=== PATIENT | female | born 1985 | race Caucasian/White ===

== ENCOUNTER 2016-12-13 05:01 | Day surgery (SDC) | payer OTHER ==
[2016-12-07 09:45] VITALS: BMI 29.7
--- NOTE | 2016-12-13 09:59 | HP ---
Past Medical History - Primary Care Physician PCP:: Tree Ramírez - Admission Chief Complaint: voluntary sterlization History of Present Illness: 31 yo f requesting bilateral tubal ligation, risks of procedure has explained to patient,no tx and ulternatives discussed History Source: Patient Limitations to Obtaining History: Language Barrier - Past Surgical History Hx Myomectomy: No Hx Transabdominal Cerclage: No - Smoking History Smoking history: Never smoked Have you smoked in the past 12 months: No Aproximately how many cigarettes per day: 0 - Alcohol/Substance Use Hx Alcohol Use: Yes (SOCIAL, rarely) - Social History History of Recent Travel: No Home Medications - Allergies Allergies/Adverse Reactions: Allergies Allergy/AdvReac Type Severity Reaction Status Date / Time No Known Allergies Allergy Verified 12/13/16 09:53 - Home Medications Home Medications: Ambulatory Orders NK [No Known Home Medication] 12/07/16 Review of Systems - Review of Systems Constitutional: reports: No Symptoms Eyes: reports: No Symptoms HENT: reports: No Symptoms Neck: reports: No Symptoms Cardiovascular: reports: No Symptoms Gastrointestinal: reports: No Symptoms Genitourinary: reports: No Symptoms Breasts: reports: No Symptoms Reported Musculoskeletal: reports: No Symptoms Integumentary: reports: No Symptoms Neurological: reports: No Symptoms Endocrine: reports: No Symptoms Hematology/Lymphatic: reports: No Symptoms Physical Exam-SEPTIC TECHNICIAN Vital Signs: Vital Signs Temperature 98.0 F 12/13/16 09:48 Pulse Rate 76 12/13/16 09:48 Respiratory Rate 20 12/13/16 09:48 Blood Pressure 115/60 12/13/16 09:48 O2 Sat by Pulse Oximetry (%) 99 12/13/16 09:47 Constitutional: Yes: Well Nourished, No Distress, Calm Eyes: Yes: WNL, Conjunctiva Clear, EOM Intact HENT: Yes: WNL, Atraumatic, Normocephalic Neck: Yes: WNL, Supple, Trachea Midline Cardiovascular: Yes: WNL, Regular Rate and Rhythm Respiratory: Yes: WNL, Regular, CTA Bilaterally Gastrointestinal: Yes: WNL ...Rectal Exam: Yes: WNL Renal/: Yes: WNL External Genitalia: Yes: Normal Vaginal Exam: Yes: Normal Cervix: Yes: Normal Uterus: Yes: Normal Adnexa: Not Palpable: Left, Right Breast(s): Yes: WNL Musculoskeletal: Yes: WNL Extremities: Yes: WNL Integumentary: Yes: WNL Neurological: Yes: WNL, Alert, Oriented ...Motor Strength: WNL Psychiatric: Yes: WNL, Alert, Oriented Problem List - Problem (1) Admission for sterilization Code(s): Z30.2 - ENCOUNTER FOR STERILIZATION Assessment/Plan laparoscopic tubal cauterization. rba discussed
[2016-12-13] MEDS ORDERED: DESFLURANE GAS 240 ML BOTTLE IH ONE (11:12)
[2016-12-13] MEDS ORDERED: PROPOFOL 20 ML ONE ×3 (11:21)
[2016-12-13] MEDS ORDERED: MIDAZOLAM HCL 2 MG/2 ML SINGLE DOSE VIAL ONE (11:21)
[2016-12-13] MEDS ORDERED: ROCURONIUM BROMIDE 50 MG/5 ML VIAL ONE ×2 (11:22→11:24)
[2016-12-13] MEDS ORDERED: NEOSTIGMINE METHYLSULFATE 0.5 MG/ML - 10 ML MDV ONE (12:24)
[2016-12-13] MEDS ORDERED: GLYCOPYRROLATE 0.2 MG/1 ML VIAL ONE (12:24)
[2016-12-13] MEDS ORDERED: DEXAMETHASONE SOD PHOSPHATE 4 MG/1 ML VIAL ONE (12:25)
[2016-12-13] MEDS ORDERED: LIDOCAINE HCL/PF 2% SDV 5ML VIAL ONE (12:25)
[2016-12-13] MEDS ORDERED: KETOROLAC TROMETHAMINE 30 MG/1 ML VIAL ONE (12:36)
[2016-12-13] MEDS ORDERED: ONDANSETRON 4 MG/2 ML VIAL IVPB PRN (13:17)
[2016-12-13] MEDS ORDERED: IBUPROFEN 800 MG/8 ML IJ IVPB PRN (13:17)
[2016-12-13] MEDS ORDERED: ONDANSETRON 4 MG/2 ML VIAL IVPUSH PRN (13:17)
[2016-12-13] MEDS ORDERED: oxyCODONE HCL 5 MG TABLET PO PRN ×3 (13:17)
[2016-12-13] MEDS ORDERED: IBUPROFEN 600 MG TABLET (FP) PO PRN (13:17)
[2016-12-13] MEDS ORDERED: ELECTROLYTE-148 SOLN 1,000 ML IV SCH (13:30)
[2016-12-13] MEDS ORDERED: LACTATED RINGERS SOLUTION 1,000 ML IV SCH (13:30)
[2016-12-13 14:29] VITALS: TEMP 97.5
[2016-12-13 15:45] VITALS: BP 123/70; PULSE 80
--- NOTE | 2017-03-08 11:45 | OP ---
DATE OF OPERATION: 12/13/2016 PREOPERATIVE DIAGNOSIS: Voluntary sterilization. POSTOPERATIVE DIAGNOSIS: Voluntary sterilization. PROCEDURE: Laparoscopic bilateral tubal cauterization. SURGEON: Tree Ramírez MD ANESTHESIA: General. ESTIMATED BLOOD LOSS: Minimal. DESCRIPTION OF OPERATION: Patient was taken to the operating room. After adequate general anesthesia, in dorsal lithotomy position, examination under anesthesia revealed the external genitalia to be normal. Vagina was normal. Cervix was clean. No lesion. Uterus normal size. Adnexa: No masses were palpable. Then, with a weighted speculum in the vagina, anterior lip of the cervix was grasped with a single-tooth tenaculum, and Hulka was introduced into the uterine cavity for manipulation. Then, patient was prepped and draped for a pelviscopy. A small infraumbilical skin incision was made. Veress needle was introduced. Pneumoperitoneum established. A 5-mm trocar was introduced through the umbilical area, and then, scope was introduced. Under direct vision, a 5-mm trocar was introduced through the suprapubic area, and then, upper abdomen was checked, was normal. Pelvic cavity and both tubes and ovaries were normal. No cul-de-sac adhesion. Uterus was normal size. Bladder was normal. Then, bipolar cautery was introduced, and then, the right tube was grasped with bipolar cautery. Right tube was cauterized in 3 portions 2 cm apart. The same procedure repeated for the opposite tube. Visualization of both tubes showed adequate cauterization. The abdomen was then emptied of all the gases. The suprapubic and infraumbilical skin incisions were closed with interrupted suture of 3-0 Biosyn. Patient tolerated the procedure well, left the OR in good condition. Beti [id number]
== END 2016-12-13 15:49 | disposition home or self-care (01) ==
LOC: JASU-SURG 05:01
PROVIDERS: ATTEND Obstetrics & Gynecology
PROC: 0U574ZZ Destruction of Bilateral Fallopian Tubes, Percutaneous Endoscopic Approach (ICD-10-PCS; principal; 2016-12-13 11:00)
DX: Z30.2 Encounter for sterilization (principal)
CPT/HCPCS: 84703; 94760

== ENCOUNTER 2019-04-12 10:53 | Emergency (ER) | payer OTHER ==
[2019-04-12 11:00] VITALS: BP 125/75; PULSE 117; TEMP 99.3; BMI 33.2
--- NOTE | 2019-04-12 11:15 | PDOC ---
History of Present Illness - General Chief Complaint: Cold Symptoms Stated Complaint: COLD SYMPTOMS Time Seen by Provider: 04/12/19 11:03 History Source: Patient Exam Limitations: Clinical Condition - History of Present Illness Initial Comments: 04/12/19 11:10 Patient with no significant past medical history present with complaint of 3- day history of persistent cough with yellow sputum, nasal congestion, sinus pain , headache and fever. Patient reported last fever was 101 last night which he took Mucinex. Denies nausea, vomiting, sore throat, shortness of breath, palpitation, chest pain. Denies recent travel or sick contact. Denies any other symptoms Is this a multiple visit Asthma Patient?: No Timing/Duration: other (3 days) Past History - Past Medical History Allergies/Adverse Reactions: Allergies Allergy/AdvReac Type Severity Reaction Status Date / Time No Known Allergies Allergy Verified 04/12/19 10:57 Home Medications: Ambulatory Orders Azithromycin [Zithromax Tri-Payam (3 DAYS) -] 500 mg PO DAILY #3 tablet 04/12/19 Benzonatate [Tessalon Pearls -] 100 mg PO Q8H PRN #21 capsule 04/12/19 Ipratropium Lowman 2 spray NS BID PRN 5 Days #1 spray 04/12/19 Methylprednisolone [Medrol Dose Payam] 4 mg PO ASDIR #21 tablet 04/12/19 Anemia: No Asthma: No Cancer: No Cardiac Disorders: No CVA: No COPD: No CHF: No Dementia: No Diabetes: No GI Disorders: No Disorders: No HTN: No Hypercholesterolemia: No Liver Disease: No Seizures: No Thyroid Disease: No - Psycho Social/Smoking Cessation Hx Smoking Status: No Smoking History: Never smoked Have you smoked in the past 12 months: No Number of Cigarettes Smoked Daily: 0 Hx Alcohol Use: No Drug/Substance Use Hx: No Substance Use Type: None Hx Substance Use Treatment: No Review of Systems - Review of Systems Able to Perform ROS?: Yes Is the patient limited Bhutanese proficient: No Constitutional: Yes: Chills, Fever HEENTM: Yes: Symptoms Reported, See HPI, Nose Congestion. No: Eye Pain, Blurred Vision, Tearing, Recent change in vision, Double Vision, Cataracts, Ear Pain, Ocular Prothesis, Ear Discharge, Nose Pain, Tinnitus, Nose Bleeding, Hearing Loss, Throat Pain, Throat Swelling, Mouth Pain, Dental Problems, Difficulty Swallowing, Mouth Swelling, Other Respiratory: Yes: Symptoms reported, See HPI, Cough, Productive cough. No: Orthopnea, Shortness of Breath, SOB with Exertion, SOB at Rest, Stridor, Wheezing, Hemoptysis, Other Cardiac (ROS): No: Symptoms Reported, See HPI, Chest Pain, Edema, Irregular Heart Rate, Lightheadedness, Palpitations, Syncope, Chest Tightness, Other ABD/GI: No: Symptoms Reported, See HPI, Blood Streaked Bowels, Constipated, Diarrhea, Nausea, Vomiting, Abdominal cramping Musculoskeletal: No: Symptoms Reported Integumentary: No: Symptoms Reported All Other Systems: Reviewed and Negative *Physical Exam - Vital Signs Last Vital Signs Temp Pulse Resp BP Pulse Ox 99.3 F 117 H 16 125/75 100 04/12/19 10:58 04/12/19 10:58 04/12/19 10:58 04/12/19 10:58 04/12/19 10:58 - Physical Exam 04/12/19 11:13 GENERAL: Well developed, well nourished. Awake and alert. No acute distress. HEENT: Normocephalic, atraumatic. PERRLA, EOMI. No conjunctival pallor. Sclera are non-icteric. Moist mucous membranes. Oropharynx is clear. NECK: Supple. Full ROM. CARDIOVASCULAR: Regular rate and rhythm. No murmurs, rubs, or gallops. Distal pulses are 2+ and symmetric. PULMONARY: No evidence of respiratory distress. Lungs clear to auscultation bilaterally. No wheezing, rales or rhonchi. ABDOMINAL: Soft. Non-tender. Non-distended. No rebound or guarding. No organomegaly. Normoactive bowel sounds. MUSCULOSKELETAL Normal range of motion at all joints. SKIN: Warm and dry. Normal capillary refill. No rashes. No cyanosis NEUROLOGICAL: Alert, awake, appropriate. Gait is normal without ataxia. PSYCHIATRIC: Cooperative. Good eye contact. Appropriate mood General Appearance: Yes: Nourished, Appropriately Dressed. No: Apparent Distress Medical Decision Making - Medical Decision Making 04/12/19 11:11 Patient with no significant past medical history present with complaint of 3- day history of persistent cough with yellow sputum, nasal congestion, sinus pain , headache and fever. Patient reported last fever was 101 last night which he took Mucinex. Denies nausea, vomiting, sore throat, shortness of breath, palpitation, chest pain. Denies recent travel or sick contact. Denies any other symptoms Clinical exam significant for bilateral nasal congestion with mild maxillary sinus tenderness otherwise unremarkable exam. Patient afebrile. Lungs clear to auscultation bilateral. Symptoms likely viral URI with sinusitis. Patient stable for discharge on Tessalon Perles as needed for cough and Medrol Payam for congestion with Atrovent nasal spray with advised to increase fluid intake and follow-up with PCP Discharge - Discharge Information Problems reviewed: Yes Clinical Impression/Diagnosis: URI, acute Sinusitis Qualifiers: Sinusitis location: maxillary Chronicity: acute Recurrence: non-recurrent Qualified Code(s): J01.00 - Acute maxillary sinusitis, unspecified Condition: Stable Disposition: HOME - Admission No - Additional Discharge Information Prescriptions: Azithromycin [Zithromax Tri-Payam (3 DAYS) -] 500 mg PO DAILY #3 tablet Benzonatate [Tessalon Pearls -] 100 mg PO Q8H PRN #21 capsule PRN Reason: Cough Ipratropium Lowman 2 spray NS BID PRN 5 Days #1 spray PRN Reason: nasal congestion Methylprednisolone [Medrol Dose Payam] 4 mg PO ASDIR #21 tablet - Follow up/Referral - Patient Discharge Instructions Patient Printed Discharge Instructions: DI for Viral Upper Respiratory Infection -- Adult, DI for Sinusitis Additional Instructions: Take prescribed medication as prescribed. Increase fluid intake. Follow-up with primary care as needed - Post Discharge Activity
== END 2019-04-12 11:27 | disposition home or self-care (01) ==
LOC: JERFT 10:53
DX: J01.00 Acute maxillary sinusitis, unspecified (principal); J06.9 Acute upper respiratory infection, unspecified
CPT/HCPCS: 99283-25